=== PATIENT | female | born 2005 | race Caucasian/White ===

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

== ENCOUNTER 2025-02-14 13:09 | Emergency (ER) | payer OTHER, SELFPAY ==
[2025-02-14 13:15] VITALS: BP 126/76
[2025-02-14] MEDS: FIORICET 1 TAB PO (14:33)
[2025-02-14 14:34] VITALS: BMI 19.5
--- NOTE | 2025-02-14 14:34 | ED.GENMED ---
History of Present Illness
General
Chief Complaint: Headache
Source: patient and family (mother)
Exam Limitations: none
Time Seen by Provider: 02/14/25 14:06
Nursing documentation reviewed up to this point in time: agreed with
History of Present Illness
History of Present Illness:
The patient is a pleasant 19 year old female who complains of a persistent headache for 1 week. She reports the headache is all over and feels like her head is being squeezed. It is associated with nausea but no vomiting. She reports she is
sensitive to light but denies visual changes, weakness, and numbness. She denies rash, fever, and sorethroat. She admits she has been under a great deal of stress related to college and hasn't slept well. The patient reports that both Motrin and
Tylenol have not helped. She reports that she has had headaches like this in the past but never lasting this long. She reports over the week the headache has waxed and waned in intensity but has never gone away. Patient reports that she hit her head
on a metal chair this past September, and since then, has had intermittent headaches and at times, brain fog. She has not had her head imaged before. Her doctor encouraged her to go to the ED to get an MRI or CT of her head. Pt adamantly does not want
blood work drawn. She quiñonez not want a preg test as she says she 'knows she isnt '
Past History
Past History
ED Past Medical History: Other (ovarian cyst)
ED Past Surgical History: Other
Social History
Tobacco: Non-smoker
Alcohol: None
Drug: None
Personal: Single
Living: with family
Employment: Student
Family History
Family History: Other
Review of Systems
Review of Systems
Allergies reviewed?: Yes
All Other Systems: ROS reviewed and negative except as documented in HPI and ROS
Constitutional: Reports no symptoms
EENT: Reports no symptoms
Respiratory: Reports no symptoms
Cardiac: Reports no symptoms
ABD/GI: Reports nausea
: Reports no symptoms
Musculoskeletal: Reports no symptoms
Skin: Reports no symptoms
Neurological: Reports headache
Endocrine: Reports no symptoms
Hematologic/Lymphatic: Reports no symptoms
Psychiatric: Reports no symptoms
Phy Exam
Physical Exam
Physical Exam:
gen: nontoxic, smiling conversational
neck: supple, no meningismus
CV:RRR
lungs: clear
abdomen: soft, NT
neuro: EOMI. CN equal and symmetric bilaterally. normal gait, normal finger to nose
Course
Orders/Labs/Results
Orders:
Orders
02/14/25 14:27
Butalb/Acetaminophen/Caffeine [Fioricet] 1 tab PO NOW STA
02/14/25 14:29
CT Head W/o Iv Contrast Urgent
Comment:
Reason For Exam: headache
Vital Signs
Initial and Last Documented VS:
Initial Vital Signs
Temp Pulse Resp BP Pulse Ox
98.2 F 109 18 126/76 99
02/14/25 13:15 02/14/25 13:15 02/14/25 13:15 02/14/25 13:15 02/14/25 13:15
Last Documented Vital Signs
Temp Pulse Resp BP Pulse Ox
98.2 F 109 18 126/76 99
02/14/25 13:15 02/14/25 13:15 02/14/25 13:15 02/14/25 13:15 02/14/25 14:42
MDM/Problems Addressed
Differential Diagnosis Includes:
migraines headache tension headache, viral illness, intracranial tumor
MDM/Problems Addressed:
Pt presents with an acute headache
*Radiology
Radiology exam reviewed: radiology read reviewed
*Pulse Oximetry
SaO2: 99
Oxygen Mode of Delivery: Room air
Patient hypoxic: no
Comment: 99% RA
*EKG
Interpreted by ED Provider?: NA
*Audience Coordinator Interpretation
Rate: Audience Coordinator- N/A
*Critical Care Note
Total Time (30-74mins, 75-104mins- exclusive of procedures): Not Applicable
Data Reviewed
Source: patient and family
Update Note
Update Note:
4:30 PM patient reports she feels so much better. CT head is negative. Clinical suspicion for subarachnoid hemorrhage is extremely low given how well uncomfortable patient appears. There is no fever, rash, sore throat to suggest acute meningitis.
Patient looks extremely well nontoxic
Patient is telling me that her iron and ferritin levels recently came back low and is asking for an iron supplement, which I have prescribed for her
ED Attending Note
-
Portions of this chart may have been created with voice recognition software.� Occasional wrong word or��sound alike� substitutions may have occurred due to the inherent limitations of voice recognition software.
Discharge Plan
Departure
Patient Disposition: Home (Routine Discharge)
Date of Disposition: 02/14/25
Time of Disposition: 16:19
Patient with high blood pressure during this ER visit?: Yes
Condition: Good
Covid-19: Not Applicable
Discharge Problem:
Headache
Instructions: Headache, Adult (DC), BLOOD PRESSURE
Prescriptions:
New
bgqcqibcri-nvgcdxmuoncbe-wtae [Fioricet] 50-300-40 mg capsule
1 cap PO TID PRN (Reason: Pain) Qty: 8 0RF
ferrous sulfate [iron] 325 mg (65 mg iron) tablet
325 mg PO DAILY Qty: 30 0RF
No Action
hydrocortisone 1 % cream
1 applic topical BID Qty: 28.35 0RF
Referrals:
Raeann Baltazar MD [Non-Admitting Privileges, Psychiatry]
Yajaira Rocha CRNP [Family Provider, General]
Activity Restrictions/Additional Instructions:
Take the Fioricet only as needed for severe headache. Do not take the Fioricet within 4 hours of taking Tylenol, as Fioricet contains Tylenol.
Do not drive or drink alcohol while using Fioricet
Interventions
Interventions:
*Risk Screen - Suicide Last Done: 02/14/25 13:15
*General Assessment Last Done: 02/14/25 13:15
*Neglect/Abuse Screening Last Done: 02/14/25 13:15
*ED- Fall Risk Assessment Last Done: 02/14/25 14:36
*ED COVID-19 Vaccine History Last Done: 02/14/25 14:36
ED- Neurological Assessment Last Done: 02/14/25 14:34
Discharge Date and Time
Print Language: GREENLANDIC
[2025-02-14 16:31] VITALS: BP 129/71
== END 2025-02-14 16:35 | disposition home or self-care (01) ==
LOC: EMR 13:09
PROVIDERS: EMERGENCY PHYSICIAN Emergency Medicine; FAMILY PHYSICIAN Registered Nurse
DX: R51.9 Headache, unspecified (principal); R03.0 Elevated blood-pressure reading, without diagnosis of hypertension
CPT/HCPCS: 99284; 70450

== ENCOUNTER 2025-04-12 22:31 | Emergency (ER) | payer OTHER, SELFPAY ==
[2025-04-12 22:33] VITALS: BP 137/97
--- NOTE | 2025-04-12 22:59 | ED.GENMED ---
History of Present Illness
General
Chief Complaint: Crisis Evaluation
Source: patient
Exam Limitations: none
Time Seen by Provider: 04/12/25 22:43
History of Present Illness
History of Present Illness:
19yoF with no significant past medical history presenting with her mother for psychiatric evaluation. Patient has been having suicidal thoughts for quite some time. She reports several stressors including school, family, and issues with friends.
She cut herself today in the right forearm. She confided in her friend who is pursuing a career in psychology. Her friend called her mother who brought her to the ED for evaluation. Patient reports having a plan to cut herself or to overdose on
pills. She denies taking any history of overdoses. She saw a therapist several years ago but has never been on medications. She denies any drug or alcohol use. She currently attends [employer] and is a sophomore.
Past History
Past History
ED Past Medical History: Other (ovarian cyst)
ED Past Surgical History: Other
Social History
Tobacco: Non-smoker
Alcohol: None
Drug: None
Personal: Single
Living: with family
Employment: Student
Family History
Family History: Other
Phy Exam
General Physical Exam
General Presentation: well appearing
General Skin: warm and dry
General Habitus: normal
General Mental: alert
ENT Exam
ENT Exam: normocephalic
Pulmonary Exam
Pulmonary Exam: no respiratory distress
Neurological Exam
Neurological Exam: alert
[place] Coma Scale
Eye Opening: Spontaneous
Verbal Response: Oriented
Motor Response: Obeys Commands
GCS Total Score: 15
Skin Exam
Skin Exam: warm/dry and other (Several superficial abrasions noted to dorsal R forearm. No areas that require suture repair. )
Psychiatric Exam
Psychiatric Exam: depressed and other (Depressed mood. +SI with plan. No signs of psychosis. Cooperative during assessment. )
Course
Orders/Labs/Results
Orders:
Orders
04/12/25 22:37
1:1 Observation - Suicide/ Violent Behavior As Directed
Crisis Consult Urgent
Reason for Consult: suicidal thoughts
04/13/25 00:22
HCG, Urine Qualitative Screen Urgent
04/13/25 00:23
Test Result ONCE
04/13/25 00:27
Test Result ONCE
04/13/25 00:29
HCG, Urine Qualitative Screen Urgent
Date Specimen was Collected: 04/13/25
Time Specimen was Collected: 00:27
Urine Drug Abuse Screen Urgent
Date Specimen was Collected: 04/13/25
Time Specimen was Collected: 00:27
Vital Signs
Initial and Last Documented VS:
Initial Vital Signs
Temp Pulse Resp BP Pulse Ox
97.8 F 98 22 137/97 100
04/12/25 22:33 04/12/25 22:33 04/12/25 22:33 04/12/25 22:33 04/12/25 22:33
Last Documented Vital Signs
Temp Pulse Resp BP Pulse Ox
97.8 F 98 22 137/97 100
04/12/25 22:33 04/12/25 22:33 04/12/25 22:33 04/12/25 22:33 04/12/25 23:01
MDM/Problems Addressed
Differential Diagnosis Includes:
19yoF here for psych evaluation. +SI with plan to overdose on pills or cut herself patient self harmed earlier today by cutting herself in the her arm. Superficial abrasions noted on exam that do not require suture repair.
Patient evaluated by crisis and patient agrees to inpatient treatment and will sign in voluntarily. Patient medically cleared for psychiatric hospitalization. Urine test and urine drug screen negative. Case signed out at shift change
awaiting bed placement.
*Pulse Oximetry
SaO2: 100
Oxygen Mode of Delivery: Room air
Patient hypoxic: no
*Critical Care Note
Total Time (30-74mins, 75-104mins- exclusive of procedures): Not Applicable
ED Attending Note
-
Portions of this chart may have been created with voice recognition software.� Occasional wrong word or��sound alike� substitutions may have occurred due to the inherent limitations of voice recognition software.
Discharge Plan
Departure
Patient Disposition: Psych Facility
Date of Disposition: 04/13/25
Time of Disposition: 01:14
Discharge Problem:
Suicidal ideations, Deliberate self-cutting
Prescriptions:
No Action
hydrocortisone 1 % cream
1 applic topical BID Qty: 28.35 0RF
qsrwolxtzw-pmgeggwztxsib-ebjq [Fioricet] 50-300-40 mg capsule
1 cap PO TID PRN (Reason: Pain) Qty: 8 0RF
ferrous sulfate [iron] 325 mg (65 mg iron) tablet
325 mg PO DAILY Qty: 30 0RF
Referrals:
Yajaira Rocha CRNP [Family Provider, General]
Interventions
Interventions:
*Risk Screen - Suicide Last Done: 04/12/25 22:33
*General Assessment Last Done: 04/13/25 00:36
*Neglect/Abuse Screening Last Done: 04/13/25 00:36
*ED- Fall Risk Assessment Last Done: 04/13/25 00:36
*ED COVID-19 Vaccine History Last Done: 04/13/25 00:36
*ED Influenza Vaccine History Last Done: 04/13/25 00:36
ED-Psychological Assessment Last Done: 04/12/25 22:40
Discharge Date and Time
Print Language: AZERI
--- NOTE | 2025-04-12 23:15 | EDRN ---
Patient ambulated into the restroom and back in bed resting comfortably
--- NOTE | 2025-04-13 00:08 | EDRN ---
Crisis is at bedside seeing patient
[2025-04-13 00:41] LABS: HCG, Urine Qualitative Screen Negative
[2025-04-13] MEDS: TYLENOL 500 MG PO (04:37)
[2025-04-13 04:39] VITALS: BMI 18.4
[2025-04-13 13:29] VITALS: BP 112/74
== END 2025-04-13 13:31 ==
LOC: EMR 22:31
PROVIDERS: Physician Assistant; EMERGENCY PHYSICIAN Emergency Medicine; FAMILY PHYSICIAN Registered Nurse
DX: R45.851 Suicidal ideations (principal); S50.811A Abrasion of right forearm, initial encounter; X78.9XXA Intentional self-harm by unspecified sharp object, initial encounter
CPT/HCPCS: 99285; 80306; 81025

== ENCOUNTER 2025-05-31 14:33 | Emergency (ER) | payer OTHER, SELFPAY ==
[2025-05-31 14:40] VITALS: BP 130/89
[2025-05-31 15:01] LABS: Hematocrit 42.2 % (37.0-47.0); Hemoglobin 14.3 g/dL (12.0-16.0); Mean Corp Hgb Conc. 33.9 g/dL (33.0-37.0); Mean Corpuscular Volume 84.2 fL (81.0-99.0); Nucleated Red Blood Cells % 0 %; Platelet Count 322 10^3/uL (130-400); Red Cell Dist. Width 12.0 % (11.5-14.5)
[2025-05-31 15:15] LABS: ALT (SGPT) 18 U/L (0-35); AST (SGOT) 22 U/L (14-36); Albumin 5.1 g/dl (3.5-5.0); Alkaline Phosphatase 114 U/L (38-126); Blood Urea Nitrogen 11 mg/dl (7-17); Calcium 10.2 mg/dl (8.4-10.2); Carbon Dioxide 25 mmol/L (22-30); Chloride 103 mmol/L (98-107); Glucose 87 mg/dl (70-99); Potassium 4.2 mmol/L (3.5-5.1); Sodium 136 mmol/L (135-145); Total Protein 7.8 g/dl (6.3-8.2); eGFR > 60.00
[2025-05-31 15:25] LABS: Troponin I < 0.012 ng/ml
--- NOTE | 2025-05-31 17:37 | ED.GENMED ---
History of Present Illness
General
Chief Complaint: Chest Pain
Source: patient
Exam Limitations: none
Time Seen by Provider: 05/31/25 17:20
Nursing documentation reviewed up to this point in time: agreed with
History of Present Illness
History of Present Illness:
19-year-old female who presents with a three-week history of anxiety, here for intermittent sharp chest pains mainly mid chest but sometimes feels it in her back. The patient reports that the pain occasionally feels heavy and is sometimes associated
with shortness of breath. She denies radiation of pain to the neck or arms. The chest pain is exacerbated by exertion and increased stress recently due to exams.
Takes oral contraceptive. No other risk factors for PE
Past History
Past History
ED Past Medical History: Psychiatric (anxiety) and Other (ovarian cyst)
ED Past Surgical History: None
Social History
Tobacco: Non-smoker
Alcohol: None
Drug: None
Personal: Single
Living: with family
Employment: Student
Family History
Family History: Other
Review of Systems
Review of Systems
Allergies reviewed?: Yes
All Other Systems: ROS reviewed and negative except as documented in HPI and ROS
Constitutional: Denies fever
Respiratory: Denies cough or trouble breathing
Cardiac: Reports chest pain; Denies diaphoresis or palpitations
ABD/GI: Denies abdominal pain, nausea, vomiting or diarrhea
: Denies dysuria or difficulty voiding
Musculoskeletal: Reports no symptoms
Skin: Reports no symptoms
Neurological: Reports no symptoms
Phy Exam
Physical Exam
Physical Exam:
GENERAL: No acute distress. A&Ox3.
CONSTITUTIONAL: Afebrile.
EYES: clear, conjunctivae normal
ENMT: moist mucus membranes, Pharynx nl
RESPIRATORY: Regular respirations, nonlabored, lungs clear.
CARDIOVASCULAR: Regular rate and rhythm, no murmurs, no rubs.
GI: Soft, nontender, normal BS
MUSCULOSKELETAL: Moves with ease. Well perfused.
SKIN: Warm, dry, pink
PSYCH: Normal mood and affect. Well kept, interactive and appropriate
NEUROLOGIC: Awake, alert and oriented. No focal neurological deficits
Scores
Heart Score for Chest Pain Patients
STEMI patient?: Not applicable
Course
Orders/Labs/Results
Orders:
Orders
05/31/25 14:34
Electrocardiogram (*1) Urgent
Reason for Study: Chest Pain
EKG- Treatment ONCE
05/31/25 14:50
Complete Blood Count/With Diff Urgent
Comprehensive Metabolic Panel Urgent
HCG, Serum Qualitative Screen Urgent
Comment: ADD ON
Troponin I Urgent
05/31/25 17:36
Add On- LAB Urgent
Tests Added?: HCG serum qualitative
CR Chest - 2 Views Urgent
Comment:
Reason For Exam: chest pain
05/31/25 17:50
D-Dimer Urgent
Abnormal Lab Results
05/31/25
14:50
Albumin 5.1 H g/dl
(3.5-5.0)
05/31/25 14:50
05/31/25 14:50
Vital Signs
Initial and Last Documented VS:
Initial Vital Signs
Temp Pulse Resp BP Pulse Ox
98.2 F 100 16 130/89 98
05/31/25 14:40 05/31/25 14:40 05/31/25 14:40 05/31/25 14:40 05/31/25 14:40
Last Documented Vital Signs
Temp Pulse Resp BP Pulse Ox
98.2 F 115 16 108/72 100
05/31/25 14:40 05/31/25 19:07 05/31/25 19:07 05/31/25 19:07 05/31/25 19:07
MDM/Problems Addressed
Differential Diagnosis Includes:
PE, anxiety, costochondritis, pericarditis, GERD, pleurisy, cardiac ischemia
MDM/Problems Addressed:
19-year-old female who presents with a three-week history of anxiety, here for intermittent sharp chest pains mainly mid chest but sometimes feels it in her back. The patient reports that the pain occasionally feels heavy and is sometimes associated
with shortness of breath. She denies radiation of pain to the neck or arms. The chest pain is exacerbated by exertion and increased stress recently due to exams.
Takes oral contraceptive. No other risk factors for PE
EKG: sinus tachycardia 107 BPM
CBC, CMP normal
Troponin normal
D dimer normal
CXR NAD
HCG Neg
Nothing worrisome in workup her today
Recommend f/u with PCP to address significant anxiety
*Pulse Oximetry
SaO2: 98
Oxygen Mode of Delivery: Room air
Patient hypoxic: no
*Critical Care Note
Total Time (30-74mins, 75-104mins- exclusive of procedures): Not Applicable
ED Attending Note
-
Portions of this chart may have been created with voice recognition software.� Occasional wrong word or��sound alike� substitutions may have occurred due to the inherent limitations of voice recognition software.
Discharge Plan
Departure
Patient Disposition: Home (Routine Discharge)
Date of Disposition: 05/31/25
Time of Disposition: 18:56
Patient with high blood pressure during this ER visit?: No
Condition: Good
Discharge Problem:
Atypical chest pain
Instructions: Costochondritis, Coping with worry and stress, Anxiety in adults - ED (DC)
Prescriptions:
No Action
hydrocortisone 1 % cream
1 applic topical BID Qty: 28.35 0RF
aqmocwzsju-civcejckkyzdt-xtlh [Fioricet] 50-300-40 mg capsule
1 cap PO TID PRN (Reason: Pain) Qty: 8 0RF
ferrous sulfate [iron] 325 mg (65 mg iron) tablet
325 mg PO DAILY Qty: 30 0RF
Referrals:
Yajaira Rocha CRNP [Family Provider, General] - Next open appointment
Stand Alone Forms: Back to School
Activity Restrictions/Additional Instructions:
As we discussed, nothing worrisome in your workup here today.
Make appointment with your primary doctor and discuss medication for anxiety.
you may try Benadryl liquid 50 mg at bedtime, take it by 11 p.m at the latest so you don't feel groggy in the morning.
Ibuprofen 600 mg (with food) every 8 hours as neede for chest pain.
Interventions
Interventions:
*Risk Screen - Suicide Last Done: 05/31/25 14:35
*General Assessment Last Done: 05/31/25 14:40
*Neglect/Abuse Screening Last Done: 05/31/25 14:40
*ED COVID-19 Vaccine History Last Done: 05/31/25 14:40
*ED Influenza Vaccine History Last Done: 05/31/25 14:40
[facility] Fall Risk Assessment Tool Last Done: 05/31/25 17:59
*Nursing Disposition Last Done: 05/31/25 19:07
ED- Cardiac Assessment Last Done: 05/31/25 17:59
Discharge Date and Time
Discharge Date/Time: 05/31/25 19:07
Print Language: KINYARWANDA
[2025-05-31 18:11] LABS: HCG, Serum Qualitative Screen Negative
[2025-05-31 18:34] LABS: D-Dimer < 0.27 ug/mlFEU (0.00-0.50)
[2025-05-31 19:07] VITALS: BP 108/72
== END 2025-05-31 19:07 | disposition home or self-care (01) ==
LOC: EMR 14:33
PROVIDERS: Emergency Medicine; Registered Nurse; EMERGENCY PHYSICIAN Emergency Medicine; FAMILY PHYSICIAN Registered Nurse
DX: R07.89 Other chest pain (principal); F41.9 Anxiety disorder, unspecified
CPT/HCPCS: 99284; 71046; 80053; 84484; 84703; 85025; 85379; 93005